=== PATIENT | male | born 1970 | race Caucasian/White ===

== ENCOUNTER → 2017-10-13 | Outpatient (CLI) | payer OTHER ==
[~2017-10-13] MED LIST: NXM/40 PO
--- NOTE | 2017-10-13 12:25 | DIAGNOSTIC IMAGING REPORT ---
L HAND MIN 3 VIEWS ROUTINE CLINICAL HISTORY: Left hand pain and swelling COMPARISON: None. DISCUSSION: No acute fractures or dislocations are visualized. There is a tiny wire like foreign body adjacent to the first metacarpal. There is a punctate foreign body located in the volar soft tissues adjacent to the proximal phalanx of the index finger. There is no erosive disease. IMPRESSION: 1. No acute fractures 2. Small foreign bodies as described above. Electronically signed by: Long Bourgeois M.D. 10/13/2017 12:24 PM Dictated Date/Time: 10/13/2017 12:21 PM
== END | disposition home or self-care (01) ==
LOC: C.RADBC 12:10
PROVIDERS: ATTEND Physician Assistant Medical
DX: M79.643 Pain in unspecified hand (principal); S60.451A Superficial foreign body of left index finger, initial encounter; X58.XXXA Exposure to other specified factors, initial encounter

== ENCOUNTER 2017-12-21 11:44 | Emergency (ER) | payer OTHER ==
[~2017-12-21] VITALS: Ht 177.8 cm; Wt 128.2 kg
[2017-12-21 11:47] VITALS: TEMP 36.9; Ht 177.8 cm; Wt 128.2 kg
[2017-12-21] MEDS ORDERED: PROPARACAINE HCL 0.5% OP SOLN 15 ML BTL OP STA (12:21)
[2017-12-21] MEDS ORDERED: ERYTHROMYCIN OP OINT 5 MG/GM 3.5 GM TUBE OP ONE (12:45)
[2017-12-21 13:01] VITALS: BP 140/80; PULSE 78; O2SAT 99
--- NOTE | 2017-12-21 18:36 | EMERGENCY ROOM VISIT NOTE ---
ED Visit Note First contact with patient: 12:02 CHIEF COMPLAINT: Foreign body in the right eye HISTORY OF PRESENT ILLNESS: This 47-year-old white male patient has a foreign body sensation in his eye and thinks it may be a piece of metal. He thinks the foreign object got in his eye when he was working underneath his jeep earlier today. He feels like it is in the lateral eye. His eye is irritated and has been tearing. His vision has not been adversely affected. The light bothers his eye. The pain is steady but is not increasing. No diplopia. His accompanies him today. He was not wearing safety glasses. REVIEW OF SYSTEMS: GENERAL: No fever or chills, easy fatigue, loss of appetite, or significant weight change. EYES AND EARS: No change in vision, photophobia, ear pain or change in hearing. PMH: Significant for GERD Previous surgeries: None. Family history: Noncontributory. Current medications: Nexium Allergies: Codeine SOCIAL HISTORY: Patient lives at home. . No tobacco use, positive EtOH use. PHYSICAL EXAM: Vital Signs: Afebrile. Reviewed and filed in patient's chart. Gen.: Well-developed, well-nourished, middle-aged white male, in obvious discomfort. No acute distress. Sitting on a bed. Alert and oriented Skin: Warm and dry with good turgor. No rashes or lesions. No ecchymosis or erythema. The patient is not diaphoretic. No abrasions. HEENT: Normocephalic atraumatic. Eyes PERRLA, EOMI. funduscopic exam is unremarkable today. Right sclera is injected. Eye was anesthetized using Alcaine drops and stained using fluorescein. Slit lamp exam was performed. There are no corneal abrasions present. No hyphema. No foreign material in the lower lid. Upper lid was everted using a Q-tip. A foreign body is visible under the lateral upper lid. This was removed easily with a Q-tip. DIAGNOSIS: Right eye retained foreign body in the upper lid DISCHARGE INSTRUCTIONS & TREATMENT: Patient was educated regarding today's findings. Conservative care measures were discussed. He states his tetanus is up-to-date. Given that it was a metallic foreign body but was not embedded in the cornea, he was given erythromycin ophthalmic ointment to be used one quarter inch in the lower lid 3 times a day for the next 4 days. The eye should return to normal by tomorrow. Return if any increasing redness in the eye or a persistent sensation of a foreign object in the eye, or any decrease in his vision. Tylenol and Motrin every 6 hours as needed for discomfort. He was instructed to use safety goggles when working under his vehicle. Current/Historical Medications Scheduled Esomeprazole Magnesium (Nexium), 40 MG PO BID Allergies Coded Allergies: Codeine (Unverified Allergy, Unknown, ., 12/21/17) Vital Signs Date Time Temp Pulse Resp B/P (MAP) Pulse Ox O2 Delivery O2 Flow Rate FiO2 12/21/17 13:01 78 20 140/80 99 12/21/17 11:47 36.9 76 18 176/82 97 Room Air Medications Administered Medications (Trade) Dose Ordered Sig/Devon Route Start Time Stop Time Status Last Admin Dose Admin Erythromycin (Erythromycin Oph Oint) 1 appln NOW ONCE OP 12/21/17 12:45 12/21/17 12:46 DC 12/21/17 12:57 1 APPLN Departure Information Impression Primary Impression: Foreign body of right eye Dispostion Home / Self-Care Forms WORK / SCHOOL INSTRUCTIONS, HOME CARE DOCUMENTATION FORM, MOTRIN USE, TYLENOL USE, IMPORTANT VISIT INFORMATION Patient Instructions [facility] Additional Instructions Erythromycin ophthalmic ointment 1/4 inch in the lower lid 3 times a day 4 days Tylenol and Motrin every 6 hours as needed for discomfort Sunglasses and dark rooms will improve your comfort Return to the ED or follow-up with your PCP for any acute worsening of symptoms
== END 2017-12-21 13:03 | disposition home or self-care (01) ==
LOC: C.EDB 11:47 → C.EDD 13:03
DX: S00.251A Superficial foreign body of right eyelid and periocular area, initial encounter (principal); X58.XXXA Exposure to other specified factors, initial encounter; K21.9 Gastro-esophageal reflux disease without esophagitis

== ENCOUNTER → 2018-03-23 | Outpatient (CLI) | payer OTHER ==
[2018-03-23 11:18] LABS: BASO % 0.3 %; BASO ABS # 0.02 K/uL (0-0.2); EOS % 3.2 %; EOS ABS # 0.19 K/uL (0-0.5); HEMATOCRIT 39.8 % (42-52); HEMOGLOBIN 12.7 g/dL (14.0-18.0); IG# 0.04 K/uL (0.00-0.02); LYMPH % 22.7 %; LYMPH ABS # 1.36 K/uL (1.2-3.4); MEAN CELL VOLUME 77.7 fL (80-100); MEAN CORPUSCULAR HEMOGLOBIN 24.8 pg (25-34); MEAN CORPUSCULAR HGB CONC 31.9 g/dl (32-36); MEAN PLATELET VOLUME 10.4 fL (7.4-10.4); MONO % 8.9 %; MONO ABS # 0.53 K/uL (0.11-0.59); NEUT % 64.2 %; NEUT ABS # 3.84 K/uL (1.4-6.5); PLATELET COUNT 314 K/uL (130-400); RED CELL DISTRIBUTION WIDTH SD 42.2 fL (36.4-46.3); WHITE BLOOD COUNT 5.98 K/uL (4.8-10.8)
[2018-03-23 11:32] LABS: ALBUMIN 3.4 gm/dl (3.4-5.0); ALT/SGPT 29 U/L (12-78); AST/SGOT 21 U/L (15-37); BLOOD UREA NITROGEN 14 mg/dl (7-18); CALCIUM 8.4 mg/dl (8.5-10.1); CARBON DIOXIDE 25 mmol/L (21-32); CREATININE 1.16 mg/dl (0.60-1.40); GLUCOSE 92 mg/dl (70-99); POTASSIUM 3.9 mmol/L (3.5-5.1); SODIUM 138 mmol/L (136-145)
[2018-03-23 11:35] LABS: ALKALINE PHOSPHATASE 79 U/L (45-117); TOTAL PROTEIN 7.2 gm/dl (6.4-8.2)
== END | disposition home or self-care (01) ==
LOC: C.LABBC 08:25
PROVIDERS: ATTEND Family Medicine Adult Medicine
DX: K62.5 Hemorrhage of anus and rectum (principal); I10 Essential (primary) hypertension

== ENCOUNTER → 2018-04-03 | Day surgery (SDC) | payer OTHER ==
[2018-03-31 16:01] VITALS: Ht 177.8 cm; Wt 122.7 kg
[~2018-04-03] VITALS: Ht 177.8 cm; Wt 122.7 kg
[~2018-04-03] MED LIST changes: +LIDOCAINE HCL 2% 2 ML VIAL (20MG/ML) ONE; +PROPOFOL IV EMULSION 10 MG/ML 20 ML VIAL ONE
--- NOTE | 2018-04-03 10:33 | Endo History and Physical ---
History & Physical Date of Service: April 03, 2018. Chief Complaint: Rectal bleeding Referring Physician: Dr. Gorman History of Present Illness 47 yo CF who presents for colonoscopy secondary to rectal bleeding. Past Surgical History Hx Cardiac Surgery: No Hx Internal Defibrillator: No Hx Pacemaker: No Hx Abdominal Surgery: No Hx of Implantable Prosthesis: No Hx Post-Op Nausea and Vomiting: No Hx Cancer Surgery: No Hx Thoracic Surgery: No Hx Orthopedic: No Hx Urinary Tract Surgery: No Social History Smoking Status: Never Smoker Hx Substance Use: No Hx Alcohol Use: Yes (A COUPLE BEERS A NIGHT) Allergies Coded Allergies: Codeine (Unverified Allergy, Unknown, ., 04/03/18) Current Medications Reported Home Medications Medications Dose Route/Sig Max Daily Dose Days Date Category Nexium (Esomeprazole Magnesium) 40 Mg Capcr 40 Mg PO BID 12/26/10 Reported Vital Signs Weight (Kilograms): 122.73 Height (Feet): 5 Height (Inches): 10 Date Time Temp Pulse Resp B/P (MAP) Pulse Ox O2 Delivery O2 Flow Rate FiO2 04/03/18 10:08 36.5 57 18 129/70 (89) 97 Room Air Physical Exam General Appearance: WD/WN, no apparent distress Respiratory/Chest: Auscultation: breath sounds normal Cardiovascular: Heart Auscultation: RRR Abdomen: Bowel Sounds: normal Inspection & Palpation: soft, non-distended, no tenderness, guarding & rebound Assessment and Plan Assessment: 47 yo CF who presents for colonoscopy secondary to rectal bleeding. Plan: Proceed with colonoscopy.
--- NOTE | 2018-04-03 10:59 | GI REPORT ---
Patient Name: Mega Vyas Procedure Date: 04/03/2018 10:24 AM Date of : 1970 Admit Type: Outpatient Age: 47 Gender: Male Attending MD: Brent Bolden DO Procedure: Colonoscopy Providers: Brnet Bolden DO Referring MD: Marilin Montoya MD Indications: Rectal bleeding Medicines: Monitored Anesthesia Care Complications: No immediate complications. Estimated Blood Loss: Estimated blood loss: none. Procedure: Pre-Anesthesia Assessment: - Prior to the procedure, a History and Physical was performed, and patient medications and allergies were reviewed. The patient's tolerance of previous anesthesia was also reviewed. The risks and benefits of the procedure and the sedation options and risks were discussed with the patient. All questions were answered, and informed consent was obtained. Prior Anticoagulants: The patient has taken no previous anticoagulant or antiplatelet agents. ASA Grade Assessment: II - A patient with mild systemic disease. After reviewing the risks and benefits, the patient was deemed in satisfactory condition to undergo the procedure. After I obtained informed consent, the scope was passed under direct vision. Throughout the procedure, the patient's blood pressure, pulse, and oxygen saturations were monitored continuously. The Scope was introduced through the anus and advanced to the terminal ileum. The colonoscopy was performed without difficulty. The patient tolerated the procedure well. The quality of the bowel preparation was good. The terminal ileum, ileocecal valve, appendiceal orifice, and rectum were photographed. Findings: The perianal and digital rectal examinations were normal. Multiple small-mouthed diverticula were found in the sigmoid colon. Non-bleeding internal hemorrhoids were found during retroflexion. The hemorrhoids were small. Impression: - Diverticulosis in the sigmoid colon. - Non-bleeding internal hemorrhoids. - No specimens collected. Recommendation: - Resume previous diet. - Continue present medications. - Repeat colonoscopy in 10 years for surveillance. - Return to primary care physician as previously scheduled. Brent Bolden DO 04/03/2018 10:58:45 AM This report has been signed electronically. Note Initiated On: 04/03/2018 10:24 AM Number of Addenda: 0 I attest to the content of the Intraoperative Record and orders documented therein, exceptions below {[id number]}
--- NOTE | 2018-04-03 10:59 | Discharge Instructions ---
Endoscopy Patient Instructions Date / Procedure(s) Performed April 03, 2018. Colonoscopy Allergy Information Coded Allergies: Codeine (Unverified Allergy, Unknown, ., 04/03/18) Discharge Date / Findings April 03, 2018. Diverticulosis Internal hemorrhoids Medication Instructions Stopped Medication(s): NEXIUM OK to resume all medications today as prescribed Reported Home Medications Medications Dose Route/Sig Max Daily Dose Days Date Category Nexium (Esomeprazole Magnesium) 40 Mg Capcr 40 Mg PO BID 12/26/10 Reported Provider Instructions Activity Restrictions - No exercising or heavy lifting for 24 hours. - Do not drink alcohol the day of the procedure. - Do not drive a car or operate machinery until the day after the procedure. - Do not make any important decisions or sign important papers in 24 hours after the procedure. Following Day: - Return to full activity which may include returning to work/school. Diet Start your diet with liquids and light foods (jello, soup, juice, toast). Then eat your usual diet if not nauseated. Treatment For Common After Affects For mild abdominal pain, bloating, or excessive gas: - Rest - Eat lightly - Lie on right side Follow-Up Information Follow-up with Dr. Gorman as scheduled Anesthesia Information What You Should Know You have had a procedure that required some medicine to reduce anxiety and discomfort. This treatment is called moderate sedation. After receiving the treatment, you may be sleepy, but you will be able to breathe on your own. The effects of the treatment may last for several hours. Follow these instructions along with Activity/Diet recommendations noted above: * Do NOT do anything where dizziness or clumsiness would be dangerous. * Rest quietly at home today, then you can be up and about tomorrow. * Have a responsible person stay with you the rest of today. * You may have had an I.V. today. If so, you may take the dressing off later today. Recommendations Call your doctor if: * Trouble breathing * Continuous vomiting for more than 24 hours * Temperature above 101 degrees * Severe abdominal pain or bloating * Pain not relieved by pain medicine ordered * There is increased drainage or redness from any incision * A large amount of rectal bleeding greater than 2-3 tablespoons. (If you had a polyp/s removed or have hemorrhoids, a small amount of blood - from the rectum is to be expected.) * You have any unanswered questions or concerns. IN THE EVENT OF A SERIOUS EMERGENCY, GO TO THE NEAREST EMERGENCY ROOM Your discharge instructions were prepared by provider Brent Bolden. Patient Instructions Signature Page Mega Vyas Patient (or Guardian) Signature/Date: I have read and understand the instructions given to me by my caregivers. Caregiver/RN/Doctor Signature/Date: The above-named patient and/or guardian has received patient instructions on this date. + Original Patient Signature Page (only) stays with chart. Please make copy for patient.
--- NOTE | 2018-04-03 11:12 | Anesthesiology Progress Note ---
Anesthesia Post Op Note Date & Time April 03, 2018 at 11:12 Vital Signs Pain Intensity: 0 Vital Signs Past 12 Hours Date Time Temp Pulse Resp B/P (MAP) Pulse Ox O2 Delivery O2 Flow Rate FiO2 04/03/18 10:58 54 18 137/82 (100) 96 Room Air 04/03/18 10:08 36.5 57 18 129/70 (89) 97 Room Air Notes Mental Status: alert / awake / arousable, participated in evaluation Pt Amnestic to Procedure: Yes Nausea / Vomiting: adequately controlled Pain: adequately controlled Airway Patency, RR, SpO2: stable & adequate BP & HR: stable & adequate Hydration State: stable & adequate Anesthetic Complications: no major complications apparent
[2018-04-03 11:20] VITALS: BP 123/77; PULSE 67; O2SAT 97
== END | disposition home or self-care (01) ==
LOC: C.GI 09:31
PROVIDERS: ATTEND Internal Medicine
DX: K62.5 Hemorrhage of anus and rectum (principal); K57.30 Diverticulosis of large intestine without perforation or abscess without bleeding; K64.8 Other hemorrhoids; Z88.5 Allergy status to narcotic agent

== ENCOUNTER 2022-04-12 16:16 | Inpatient (IN) ==
[2022-04-12 18:11] LABS: Hematocrit (blood only) 27.2 % (42-52); Hemoglobin 7.3 g/dL (14.0-18.0); Mean Corpuscular Hemoglobin 16.6 pg (25-34); Mean Corpuscular Hgb Conc 26.8 g/dL (32-36); Mean Corpuscular Volume 61.8 fL (80-100); Mean Platelet Volume 9.3 fL (7.4-10.4); Platelet Count 382 K/uL (130-400); RDW Coefficient of Variation 17.3 % (11.5-14.5); RDW Standard Deviation 38.9 fL (36.4-46.3); White Blood Count 6.27 K/uL (4.8-10.8)
[2022-04-12 18:15] LABS: Basophils # (auto) 0.01 K/uL (0-0.2); Basophils % (auto) 0.2 %; Eosinophils # (auto) 0.25 K/uL (0-0.5); Hypochromasia Present; Immature Granulocytes # (auto) 0.01 K/uL (0.00-0.02); Immature Granulocytes % (auto) 0.2 %; Lymphocytes # (auto) 1.72 K/uL (1.2-3.4); Lymphocytes % (auto) 27.4 %; Microcytosis Present; Monocytes # (auto) 0.44 K/uL (0.11-0.59); Neutrophils # (auto) 3.84 K/uL (1.4-6.5); Neutrophils % (auto) 61.2 %; Ovalocytes 1+; Tear Drop Cells 1+
[2022-04-12 18:16] LABS: Albumin Globulin Ratio 1.5 (0.9-2); Albumin Level 4.1 gm/dl (3.4-5.0); BUN Creatinine Ratio 15.3 (10-20); Bilirubin,Total 0.4 mg/dl (0.2-1.0); Calcium 8.8 mg/dl (8.5-10.1); Creatinine Clr Calc Pharmacy 127.8 ml/min; Est GFR (African American) 116.1 ml/min; Est GFR (Non-African American) 100.2 ml/min; Globulin 2.8 gm/dl (2.5-4.0); Potassium 3.8 mmol/L (3.5-5.1); Total Protein 6.9 gm/dl (6.0-8.3)
[2022-04-12 18:17] LABS: Partial Thromboplastin Ratio 0.7; Partial Thromboplastin Time 20.5 Seconds (21.0-31.0)
[2022-04-12] MEDS ORDERED: SODIUM CHLORIDE 0.9% 1000ML 1,000 ML IV STA (18:26)
--- NOTE | 2022-04-12 18:32 | Emergency Department Note ---
Impression & Plan Symptomatic anemia ED Provider Note INFORMANT: Patient ED PROVIDER(S): Avery Hart MD CHIEF COMPLAINT: Anemia PLAN: Disposition: Admitted Condition: Good Outpatient prescription management: none Referral: None MEDICAL DECISION MAKING: Patient presented because of abnormal hemoglobin noted on outpatient labs. On history it sounds like this is been a progressive issue as he has been having symptoms escalate over the last 7 months. Had blood work done as an outpatient and his anemia was confirmed on blood work in the ER. His hemoglobin was 7.3. Remainder of blood work was unremarkable. Further management will be necessary in the hospital. The patient has symptomatic anemia and I discussed transfusion. Patient consented. Patient was transfused 1 unit of packed red bl ood cells. [facility]ation [facility] with the [facility]. Patient was evaluated in the ER and admitted for further management. Triage Nursing notes reviewed and agree them. Vital Signs: reviewed and remarkable for no significant abnormalities Differential diagnosis: Esophagitis, peptic ulcer disease, variceal bleed, gastritis,Diverticulosis, AVM, coagulopathy, colitis, inflammatory bowel disease, malignancy, Vandana- Draper tear, epistaxis, fissure, hemorrhoids, as well as other pathologies. Diagnostics interpreted by me: EC Lead ECG performed and revealed Normal sinus rhythm at 66, normal [place], QRS normal. No elevation or depression. No PACs or PVCs Cardiac Monitoring: Cardiac monitoring ordered by me: The patient was placed on continuous cardiac monitoring and observed. It revealed a normal sinus rhythm at 62 beats per minute without ectopy or evidence of dysrhythmia. Imaging studies: Deferred HPI: The patient is a 51 year old male who presents to the Emergency Room with complaints of low hgb found today on outpatient labs. Hx of Reflux and notes persistent symptoms. Told in past that caused minor bleeding and anemia. Notes SOB with exertion since Oct 21, also intermittent chest pains. Hasn't seen a doctor in 3 years since his PCP retired. No relieving factors noted. Current pain is rated as 0/10. Pt denies LOC, headache, fevers, chills, diaphoresis, visual changes, neck pain, nausea, vomiting, abdominal pain, back pain, melena, hematochezia, urinary symptoms, numbness, weakness, lymphadenopathy, rash, or other complaints. ROS: See above HPI for pertinent positives & negatives. A total of 10 systems reviewed and were otherwise negative. PAST MEDICAL HISTORY:See Below , GERD, Anemia PAST SURGICAL HISTORY:See Below, FAMILY HISTORY:See Below SOCIAL HISTORY:See Below, non-smoker HOME MEDICATIONS:See Below ALLERGIES:See Below VITALS:See Below PHYSICAL EXAMINATION: GENERAL: Awake, alert, well-appearing, in no distress HENT: Normocephalic, atraumatic. Oropharynx unremarkable. EYES: Pale conjunctiva. Sclera non-icteric. NECK: Inspection normal. Non-tender. Supple. No nuchal rigidity. FROM. No masses. RESPIRATORY: Clear to auscultation. No wheezes. No rales. Normal respiratory effort. CARDIAC: Normal rate. Normal rhythm. No murmurs. No rubs. Extremities warm and well perfused. Pulses equal. No JVD. GI: Soft, non-distended. No tenderness to palpation. No rebound or guarding. No masses. RECTAL: Deferred. MUSCULOSKELETAL: Atraumatic. Chest examination reveals no tenderness. The back is symmetrical on inspection without obvious abnormality. There is no CVA tenderness to palpation. No joint edema. LOWER EXTREMITIES: Calves are equal size bilaterally and non-tender. No edema. N o discoloration. NEURO: Normal sensorium. No sensory or motor deficits noted. SKIN: No rash or jaundice noted. Avery Hart MD Past Med/Surg History Medical History (Updated 04/12/22 @ 21:23 by Reina Salvador PA-C) COVID-19 GERD (gastroesophageal reflux disease) No significant past medical history Obesity Symptomatic anemia Social History Smoking Status: Never smoker Second Hand Exposure: Yes; Do You Dip or Chew Tobacco: Yes; Tobacco Cessation Education Requested by Patient: No Hx Alcohol Use: No Hx Substance Use: No Preferred Language: Mohawk Communication Ability: Effective Phys Therapist Required: No Beliefs That Will Affect Care: None Current Living Situation: Spouse Other Information That Helps Us Care for You: No Feels Safe at Home: Yes Safety Concerns: Feels Safe At This Time Assistive Devices: None Allergies Allergies Allergy/AdvReac Type Severity Reaction Status Date / Time codeine Allergy Severe Anaphylaxis Unverified 04/12/22 19:34 Home Meds Home Medications Medication Instructions Recorded Confirmed esomeprazole magnesium 20 mg 0 mg PO DAILY PRN 04/12/22 04/12/22 tablet,delayed release Results & Data (ED) Vital Signs Vital Signs - 24 hr 04/12/22 16:31 Temperature 36.5 C Temperature Source Temporal Artery Scan Pulse Rate 81 Respiratory Rate 20 Blood Pressure 155/77 H Blood Pressure Mean 103 Pulse Oximetry 97 Oxygen Delivery Method Room Air Sepsis Recent Fever Within 48 Hours No Sepsis New/Unexplained Change in Mental Status N/A Sepsis Action Taken by Nursing No Action Required Laboratory Data Result diagrams: 04/12/22 17:40 04/12/22 17:40 Lab Results 04/12/22 04/12/22 04/12/22 Range/Units 17:38 17:40 17:40 WBC 6.27 (4.8-10.8) K/uL RBC 4.40 L (4.7-6.1) M/uL Hgb 7.3 L (14.0-18.0) g/dL Hct 27.2 L (42-52) % MCV 61.8 L (80-100) fL MCH 16.6 L (25-34) pg MCHC 26.8 L (32-36) g/dL RDW Std Deviation 38.9 (36.4-46.3) fL RDW Coeff of Vicenta 17.3 H (11.5-14.5) % Plt Count 382 (130-400) K/uL MPV 9.3 (7.4-10.4) fL Immature Gran % (Auto) 0.2 % Neut % (Auto) 61.2 % Lymph % (Auto) 27.4 % [place] % (Auto) 7.0 % Eos % (Auto) 4.0 % Baso % (Auto) 0.2 % Neut # (Auto) 3.84 (1.4-6.5) K/uL Lymph # (Auto) 1.72 (1.2-3.4) K/uL [place] # (Auto) 0.44 (0.11-0.59) K/uL Eos # (Auto) 0.25 (0-0.5) K/uL Baso # (Auto) 0.01 (0-0.2) K/uL Immature Gran # (Auto) 0.01 (0.00-0.02) K/uL Hypochromasia Present Microcytosis Present Tear Drop Cells 1+ Ovalocytes 1+ PT (9.0-12.0) Seconds INR (0.9-1.1) APTT (21.0-31.0) Seconds PTT Ratio Sodium 136 (136-145) mmol/L Potassium 3.8 (3.5-5.1) mmol/L Chloride 105 (98-107) mmol/L Carbon Dioxide 24 (21-32) mmol/L Anion Gap 7 (3-11) BUN 13 (6-23) mg/dl Creatinine 0.85 (0.6-1.4) mg/dl Est Cr Clr Drug Dosing 127.8 ml/min Est GFR ( Amer) 116.1 ml/min Est GFR (Non-Af Amer) 100.2 ml/min BUN/Creatinine Ratio 15.3 (10-20) Glucose 96 (70-99(Fasting)) mg/dl Calcium 8.8 (8.5-10.1) mg/dl Iron (35-175) mcg/dl TIBC (250-450) mcg/dl Unsaturated IBC (155-355) mcg/dl Transferrin % Sat (20-50) % Ferritin (8-388) ng/ml Total Bilirubin 0.4 (0.2-1.0) mg/dl AST 21 (13-39) U/L ALT 20 (7-52) U/L Alkaline Phosphatase 56 (34-104) U/L Troponin I High Sens (0-20) pg/ml Total Protein 6.9 (6.0-8.3) gm/dl Albumin 4.1 (3.4-5.0) gm/dl Globulin 2.8 (2.5-4.0) gm/dl Albumin/Globulin Ratio 1.5 (0.9-2) SARS-CoV-2, RNA, NAAT (NEGATIVE) Blood Type O Positive Blood Type Recheck Antibody Screen NEGATIVE Crossmatch See Detail 04/12/22 04/12/22 04/12/22 Range/Units 17:40 17:40 19:25 WBC (4.8-10.8) K/uL RBC (4.7-6.1) M/uL Hgb (14.0-18.0) g/dL Hct (42-52) % MCV (80-100) fL MCH (25-34) pg MCHC (32-36) g/dL RDW Std Deviation (36.4-46.3) fL RDW Coeff of Vicenta (11.5-14.5) % Plt Count (130-400) K/uL MPV (7.4-10.4) fL Immature Gran % (Auto) % Neut % (Auto) % Lymph % (Auto) % [place] % (Auto) % Eos % (Auto) % Baso % (Auto) % Neut # (Auto) (1.4-6.5) K/uL Lymph # (Auto) (1.2-3.4) K/uL [place] # (Auto) (0.11-0.59) K/uL Eos # (Auto) (0-0.5) K/uL Baso # (Auto) (0-0.2) K/uL Immature Gran # (Auto) (0.00-0.02) K/uL Hypochromasia Microcytosis Tear Drop Cells Ovalocytes PT 11.0 (9.0-12.0) Seconds INR 1.0 (0.9-1.1) APTT 20.5 L (21.0-31.0) Seconds PTT Ratio 0.7 Sodium (136-145) mmol/L Potassium (3.5-5.1) mmol/L Chloride (98-107) mmol/L Carbon Dioxide (21-32) mmol/L Anion Gap (3-11) BUN (6-23) mg/dl Creatinine (0.6-1.4) mg/dl Est Cr Clr Drug Dosing ml/min Est GFR ( Amer) ml/min Est GFR (Non-Af Amer) ml/min BUN/Creatinine Ratio (10-20) Glucose (70-99(Fasting)) mg/dl Calcium (8.5-10.1) mg/dl Iron (35-175) mcg/dl TIBC (250-450) mcg/dl Unsaturated IBC (155-355) mcg/dl Transferrin % Sat (20-50) % Ferritin (8-388) ng/ml Total Bilirubin (0.2-1.0) mg/dl AST (13-39) U/L ALT (7-52) U/L Alkaline Phosphatase (34-104) U/L Troponin I High Sens 5.9 (0-20) pg/ml Total Protein (6.0-8.3) gm/dl Albumin (3.4-5.0) gm/dl Globulin (2.5-4.0) gm/dl Albumin/Globulin Ratio (0.9-2) SARS-CoV-2, RNA, NAAT (NEGATIVE) Blood Type Blood Type Recheck O Positive Antibody Screen Crossmatch 04/12/22 04/12/22 Range/Units 19:25 19:32 WBC (4.8-10.8) K/uL RBC (4.7-6.1) M/uL Hgb (14.0-18.0) g/dL Hct (42-52) % MCV (80-100) fL MCH (25-34) pg MCHC (32-36) g/dL RDW Std Deviation (36.4-46.3) fL RDW Coeff of Vicenta (11.5-14.5) % Plt Count (130-400) K/uL MPV (7.4-10.4) fL Immature Gran % (Auto) % Neut % (Auto) % Lymph % (Auto) % [place] % (Auto) % Eos % (Auto) % Baso % (Auto) % Neut # (Auto) (1.4-6.5) K/uL Lymph # (Auto) (1.2-3.4) K/uL [place] # (Auto) (0.11-0.59) K/uL Eos # (Auto) (0-0.5) K/uL Baso # (Auto) (0-0.2) K/uL Immature Gran # (Auto) (0.00-0.02) K/uL Hypochromasia Microcytosis Tear Drop Cells Ovalocytes PT (9.0-12.0) Seconds INR (0.9-1.1) APTT (21.0-31.0) Seconds PTT Ratio Sodium (136-145) mmol/L Potassium (3.5-5.1) mmol/L Chloride (98-107) mmol/L Carbon Dioxide (21-32) mmol/L Anion Gap (3-11) BUN (6-23) mg/dl Creatinine (0.6-1.4) mg/dl Est Cr Clr Drug Dosing ml/min Est GFR ( Amer) ml/min Est GFR (Non-Af Amer) ml/min BUN/Creatinine Ratio (10-20) Glucose (70-99(Fasting)) mg/dl Calcium (8.5-10.1) mg/dl Iron 22 L (35-175) mcg/dl TIBC 420 (250-450) mcg/dl Unsaturated IBC 398 H (155-355) mcg/dl Transferrin % Sat 5 L (20-50) % Ferritin 2.1 L (8-388) ng/ml Total Bilirubin (0.2-1.0) mg/dl AST (13-39) U/L ALT (7-52) U/L Alkaline Phosphatase (34-104) U/L Troponin I High Sens 6.1 (0-20) pg/ml Total Protein (6.0-8.3) gm/dl Albumin (3.4-5.0) gm/dl Globulin (2.5-4.0) gm/dl Albumin/Globulin Ratio (0.9-2) SARS-CoV-2, RNA, NAAT NEGATIVE (NEGATIVE) Blood Type Blood Type Recheck Antibody Screen Crossmatch Administered Medications Sodium Chloride (Nss 1000ml) 1,000 mls @ 125 mls/hr IV .Q8H STA Stop: 04/13/22 02:25 Last Admin: 04/12/22 19:15 Dose: 125 mls/hr Documented by: [id number] Pantoprazole Sodium 40 mg/ (Syringe) 10 mls @ 5 mls/min IV BID ENRIQUE Stop: 05/12/22 20:59 Last Admin: 04/12/22 22:20 Dose: 5 mls/min Documented by: [id number] Discontinued Medications Ioversol (Optiray 320 100ml) 94 ml IV ONCE ONE Stop: 04/12/22 23:00 Last Admin: 04/12/22 22:59 Dose: 94 ml Documented by: [id number] Imaging Data Radiologist's Impression: Chest X-Ray 04/12/22 19:43 XR chest 1V portable HISTORY: shortness of breath COMPARISON: Chest 12/26/2010. FINDINGS: The lungs are clear. Cardiac silhouette is borderline enlarged. No pleural effusions. No pneumothorax. IMPRESSION: Borderline cardiomegaly. Otherwise, no acute process within the chest ACT 112: Negative or not required by law. Electronically signed by: Raul Valle M.D. 04/12/2022 8:02 PM Discharge Plan Visit Data Chief Complaint: Abnormal Labs/Diagnostic Testing Stated Complaint: ABNORMAL LABS, REF FOR TRANSFUSION ED Provider: Avery Hart Discharge Problem: Symptomatic anemia Patient Disposition: Admitted As Inpatient Discharge Instructions Interventions: ED Discharge Assessment Last Done: 04/12/22 20:57
[2022-04-12] MEDS ORDERED: SODIUM CHLORIDE 0.9% 250 ML IV PRN ×2 (18:35→21:15)
--- NOTE | 2022-04-12 19:10 | History & Physical Report ---
Date of Service April 12, 2022 Assessment & Plan (1) Symptomatic anemia: Plan: - Hgb 7.4 on outpatient labs, 7.3 here. Microcytic. Associated fatigue, SOB, intermittent chest pain since October. - Peripheral smear, iron panel ordered, done prior to transfusion: -Iron 22, TIBC 420, unsaturated IBC 398, transferrin percent 5%, ferritin 2.1. - CT A/P, CXR ordered. - 2 units RBCs ordered for floor with 2 on hold. - Started on IV protonix 40 mg BID, NPO at midnight. - GI consulted. (2) Shortness of breath: Plan: - Chronic over several months, most likely related to anemia. CXR unrevealing other than borderline cardiomegaly. - SpO2 > 95% on room air. (3) GERD (gastroesophageal reflux disease): Plan: - Nexium at home, will be on IV PPI here. Plan: - Admit to PCU. - SCDs, no chemoppx due to suspected GI bleed. - Full Code. History of Present Illness Chief Complaint: anemia on outpt labs Primary Care Provider: Aquiles Gorman MD Mr. Vyas is a 51-year-old male past medical history of obesity and GERD who presents today for hemoglobin of 7.3 on outpatient labs. He presented to his PCP today to be seen for ongoing SOB, fatigue and chest pain. He noticed in October 2021 when he had to cut wood he was very short of breath and fatigued, feeling wiped out with significantly less activity than is typically able to do. This has been ongoing with activity since then. Associated with intermittent bouts of chest pain, described as sharp, stabbing pain in his chest that does not radiate elsewhere, lasts up to 30 seconds and goes away without intervention. Comes on both at rest, with activity, and after meals. Reports sometimes after swallowing, he feels pressure as if the food is pushing on his heart as it goes down. He denies fever/chills, weight loss, night sweats, decreased appetite, chest pressure, diaphoresis, dizziness, syncope, cough, orthopnea, PND, abdominal pain, nausea, vomiting, melena, hematochezia, hematemesis. Was evaluated by his PCP today who ordered labs for further evaluation. Labs and stress echo ordered, An EKG was done in the office that did not reveal any clear signs of ischemia. He reports having EGDs in the past at this facility years ago and been being told he has "a bleeding throat", did find a EGD report from 2009 that reported gastritis/esophagitis. He takes Nexium for heartburn. Reports a poor diet consists of fatty foods and fast food, denies alcohol use. Denies personal or family history of anemia, GI cancers. In ED, patient hypertensive 155/77, otherwise vital signs normal stable, 97% on room air. Labs significant for Hgb 7.3 with MCV 61.8, MCHC 26.8. Coag panel within normal limits. CMP unremarkable. Allergies Allergy/AdvReac Type Severity Reaction Status Date / Time codeine Allergy Severe Anaphylaxis Unverified 04/12/22 19:34 Home Medications Medication Instructions Recorded Confirmed Type esomeprazole magnesium 20 mg 0 mg PO DAILY PRN 04/12/22 04/12/22 History tablet,delayed release Past Med/Surg History Medical History (Updated 04/13/22 @ 21:52 by Marcos Lopez) COVID-19 GERD (gastroesophageal reflux disease) No significant past medical history Symptomatic anemia Social History Smoking Status: Never smoker Second Hand Exposure: Yes; Do You Dip or Chew Tobacco: Yes; Tobacco Cessation Education Requested by Patient: No Hx Alcohol Use: No Hx Substance Use: No Preferred Language: Faroese Communication Ability: Effective Bearing Ring Assembler Required: No Beliefs That Will Affect Care: None Current Living Situation: Spouse Other Information That Helps Us Care for You: No Feels Safe at Home: Yes Safety Concerns: Feels Safe At This Time Assistive Devices: None Review of Systems Review of Systems: Constitutional: fatigue since October 2021; No fever/chills, weakness, myalgias, anorexia, night sweats Eyes: No diplopia, no worsening or blurred vision ENT: normal hearing, no trouble swallowing Respiratory: No cough, sputum, dyspnea at rest or on exertion Cardiovascular: No chest pain, tightness or palpitations Abdomen: No pain, nausea, vomiting, diarrhea or constipation : Denies dysuria, hematuria, increased urgency/frequency, urinary retention Musculoskeletal: No joint pain, calf pain, swelling Neurologic: No weakness, numbness/tingling, or balance problems Psychiatric: No anxiety or depression Skin: No rash or itch Physical Exam Physical Exam: General: awake, alert, no apparent distress Head: Normocephalic, atraumatic ENT: PERRL, EOMI, no pharyngeal exudate, mucous membranes moist Chest: Clear to auscultation, on room air, no adventitious breath sounds Cardiac: Regular rate and rhythm, no murmur, no JVD, normal peripheral pulses, good capillary refill Abdominal: NABS x 4 quadrants, soft, nontender to palpation, no rebound, guarding or tenderness Extremities: Normal inspection, no peripheral edema or erythema, calfs nontender to palpation Psych: Normal mood and affect Neuro: AAO x 3, strength intact bilaterally and rated 5/5, no motor deficits, speech is clear, no peripheral sensory deficits Skin: no rash or erythema Results & Data Results & Data ([facility]) Vital Signs (Past 12 Hours) Vital Signs Temp Pulse Resp BP Pulse Ox 04/12/22 16:31 36.5 C 81 20 155/77 H 97 Laboratory Results Abnormal lab results 04/12/22 04/12/22 Range/Units 17:40 17:40 RBC 4.40 L (4.7-6.1) M/uL Hgb 7.3 L (14.0-18.0) g/dL Hct 27.2 L (42-52) % MCV 61.8 L (80-100) fL MCH 16.6 L (25-34) pg MCHC 26.8 L (32-36) g/dL RDW Coeff of Vicenta 17.3 H (11.5-14.5) % APTT 20.5 L (21.0-31.0) Seconds Diagnostic Findings Chest X-Ray 04/12/22 19:43 XR chest 1V portable HISTORY: shortness of breath COMPARISON: Chest 12/26/2010. FINDINGS: The lungs are clear. Cardiac silhouette is borderline enlarged. No pleural effusions. No pneumothorax. IMPRESSION: Borderline cardiomegaly. Otherwise, no acute process within the chest ACT 112: Negative or not required by law. Electronically signed by: Raul Valle M.D. 04/12/2022 8:02 PM ECG Additional Comments: Normal sinus rhythm Normal ECG No previous ECGs available. Code Status & VTE Plan Code Status Full Code. Supervising Physician Co-Signing Physician Notes Attending addendum: I have physically seen this patient, have supervised the [facility]'s activities, and agree with the H&P unless as otherwise noted. Assessment and Plan: Symptomatic anemia- Hemoglobin 7.4 with outpatient labs, and 7.3 while in the ED tonight Severe hypochromic microcytic anemia Check iron studies, B12, folate, reticulocyte count, Hemoccults, and peripheral smear 2 units PRBCs ordered by the ED Stop x40 mg IV twice daily N.p.o. H&H every 6 hours Hemoccult test stools Consult gastroenterology GERD/GI bleed- Oral Nexium changed to IV Protonix while in hospital Remaining orders and notations as noted PG Care Time/CCT Total # of Minutes Spent Total Time Spent with Patient: Total time spent is greater than 50% in coordination of care (as documented) at patient's floor/unit and/or counseling patient: Coding Level of Care Code 34932 Initial Inpt Care Lvl 2 Diagnoses Symptomatic anemia D64.9 Shortness of breath R06.02 GERD (gastroesophageal reflux disease) K21.9
--- NOTE | 2022-04-12 20:05 | XRay Report ---
XR chest 1V portable HISTORY: shortness of breath COMPARISON: Chest 12/26/2010. FINDINGS: The lungs are clear. Cardiac silhouette is borderline enlarged. No pleural effusions. No pn eumothorax. IMPRESSION: Borderline cardiomegaly. Otherwise, no acute process within the chest ACT 112: Negative or not required by law. Electronically signed by: Raul Valle M.D. 04/12/2022 8:02 PM
[2022-04-12 20:31] LABS: Troponin I High Sensitivity 6.1 pg/ml (0-20)
[2022-04-12 20:34] LABS: Ferritin 2.1 ng/ml (8-388)
[2022-04-12] MEDS ORDERED: POLYETHYLENE (MIRALAX) 17 GM PACK PO PRN (21:15)
[2022-04-12] MEDS ORDERED: ONDANSETRON INJ 2 MG/ML 2 ML VIAL IV PRN (21:15)
[2022-04-12] MEDS: PANTOprazole 40 MG in SYRINGE 0 ML IV SCH (22:20)
[2022-04-12] MEDS ORDERED: OPTIRAY 320 100ml IV ONE (22:59)
[2022-04-13 07:59] LABS: BUN Creatinine Ratio 11.5 (10-20); Calcium 8.5 mg/dl (8.5-10.1); Creatinine Clr Calc Pharmacy 127.4 ml/min; Est GFR (African American) 114.2 ml/min; Est GFR (Non-African American) 98.5 ml/min; Potassium 4.3 mmol/L (3.5-5.1)
[2022-04-13 08:19] LABS: Hematocrit (blood only) 28.2 % (42-52); Hemoglobin 7.8 g/dL (14.0-18.0); Mean Corpuscular Hgb Conc 27.7 g/dL (32-36); Mean Platelet Volume 9.3 fL (7.4-10.4); Platelet Count 369 K/uL (130-400); RDW Coefficient of Variation 19.4 % (11.5-14.5); Red Blood Count 4.34 M/uL (4.7-6.1); White Blood Count 4.43 K/uL (4.8-10.8)
[2022-04-13 08:30] LABS: Basophils # (auto) 0.01 K/uL (0-0.2); Basophils % (auto) 0.2 %; Eosinophils # (auto) 0.27 K/uL (0-0.5); Eosinophils % (auto) 6.1 %; Giant Platelets 1+; Hypochromasia Present; Lymphocytes # (auto) 1.19 K/uL (1.2-3.4); Lymphocytes % (auto) 26.9 %; Microcytosis Present; Monocytes % (auto) 11.3 %; Neutrophils # (auto) 2.46 K/uL (1.4-6.5); Neutrophils % (auto) 55.5 %; Poikilocytosis Present
--- NOTE | 2022-04-13 09:35 | CT Scan Report ---
CT abd pelvis oral and IV con CLINICAL HISTORY: suspected lower GI bleed TECHNIQUE: Helical axial images of the abdomen and pelvis were obtained and displayed. Automated dose lowering techniques and/or adjustment according to patient size were utilized for this exam. This e xam was performed with intravenous contrast. CT DOSE: 1404.61 mGy.cm COMPARISON: Comparison is made to CT abdomen pelvis 04/12/2022 FINDINGS: Lower chest: No acute abnormality Liver: Unremarkable. No focal lesions are seen. Gallbladder and biliary tree: No calcified gallstones. Normal caliber wall. No intra- or extrahepatic biliary ductal dilation. Pancreas: Unremarkable, no focal lesions. Spleen: Unremarkable. Adrenals: Unremarkable. Kidneys and ureters: A left renal cyst is noted. Bladder: Unremarkable. Reproductive organs: Unremarkable. Bowel: A few diverticuli are seen without evidence of diverticulitis. The appendix is normal. A small hiatal hernia is seen. Lymph nodes Retroperitoneal: Unremarkable. Mesenteric: Unremarkable. Pelvic: Unremarkable. Peritoneum: Normal. Vessels: Unremarkable. Abdominal wall: Unremarkable. Bones: Unremarkable. IMPRESSION: No acute abnormalities. No definite foci of GI bleed. ACT 112: Negative or not required by law. Electronically signed by: Les Hernandez M.D. 04/13/2022 9:34 AM
[2022-04-13] MEDS ORDERED: SODIUM CHLORIDE 0.9% 250 ML IV PRN (09:50)
[2022-04-13] MEDS: PANTOprazole 40 MG in SYRINGE 0 ML IV SCH ×2 (10:04→19:46)
--- NOTE | 2022-04-13 10:09 | Electrocardiogram Report ---
Test Reason : Blood Pressure : / mmHG Vent. Rate : 066 BPM Atrial Rate : 066 BPM P-R Int : 168 ms QRS Dur : 086 ms QT Int : 406 ms P-R-T Axes : 037 009 054 degrees QTc Int : 425 ms Normal sinus rhythm Normal ECG No previous ECGs available Confirmed by Berry Garcia ([id number]) on 04/13/2022 10:09:20 AM Referred By: REFERRED SELF Confirmed By:Berry Garcia
--- NOTE | 2022-04-13 13:27 | Gastrointestinal Consultation ---
Date of Consultation April 13, 2022 Assessment & Plan (1) Symptomatic anemia: suspect slow bleeding AVM vs. PUD or less likely malignancy. no family hx anemia. recs: NPO post midnight EGD tomorrow to further evaluate supportive care, IVFs, transfuse pRBC prn protonix 40 mg BID Thank you for allowing me to participate in the care of this patient. History of Present Illness Attending Physician: Marcos Lopez History of Present Illness 51-year-old male with hx obesity, GERD here with symptomatic anemia. Notes since 10/2021 has had fatigue with exertion, particularly cutting wood. also with dyspnea and chest pains. No hematemesis, hematochezia, NSAID use, alcohol abuse. Hgb noted to be 7.8, was 12.7 in 03/2018. Notes prior EGD with Dr. Bee and reports having bleeding from his throat. Also with past colonoscopy around the same time, so at least 5 years ago. labs reviewed. Allergies Allergy/AdvReac Type Severity Reaction Status Date / Time codeine Allergy Severe Anaphylaxis Unverified 04/12/22 19:34 Home Medications Medication Instructions Recorded Confirmed Type esomeprazole magnesium 20 mg 0 mg PO DAILY PRN 04/12/22 04/12/22 History tablet,delayed release Patient History Medical History (Updated 04/12/22 @ 21:23 by Reina aSlvador PA-C) COVID-19 GERD (gastroesophageal reflux disease) No significant past medical history Obesity Symptomatic anemia Social History Smoking Status: Never smoker Second Hand Exposure: Yes; Do You Dip or Chew Tobacco: Yes; Tobacco Cessation Education Requested by Patient: No Hx Alcohol Use: No Hx Substance Use: No Preferred Language: Yi Communication Ability: Effective Ethnoarchaeologist Required: No Beliefs That Will Affect Care: None Current Living Situation: Spouse Other Information That Helps Us Care for You: No Feels Safe at Home: Yes Safety Concerns: Feels Safe At This Time Assistive Devices: None Review of Systems Constitutional: no fever, no chills and no weight loss Eyes: as per Subjective / HPI Ear, Nose, Mouth, Throat: as per Subjective / HPI Respiratory: no dyspnea and no dyspnea on exertion Cardiovascular: no chest pain and no palpitations Gastrointestinal: as per Subjective / HPI Musculoskeletal: no joint pain and no swelling Integumentary: no rash and no lesions Neurologic: no numbness and no paresthesia Psychiatric: no depression and no anxiety Endocrine: no fatigue Hematologic / Lymphatic: no easy bleeding and no easy bruising Physical Exam Constitutional: WD/WN, vitals as above Eyes: EOM intact bilaterally Neck: normal visual inspection Respiratory: normal respiratory effort, lungs clear to auscultation Cardiovascular: RRR, no murmur, no edema Gastrointestinal (Abdomen): Inspection/Auscultation: abdomen normal to inspection; abdomen not distended Percussion/Palpation: abdomen soft; abdomen nontender and no hepatosplenomegaly Musculoskeletal: Extremities: no cyanosis Gait: normal gait Skin: no rashes, warm and dry Neurologic: moves all extremities Psychiatric: A+Ox3, euthymic affect Results & Data ([facility]) Vital Signs (Past 12 Hours) Vital Signs Temp Pulse Pulse Resp BP BP Pulse Ox 04/13/22 12:42 36.6 C 48 L 18 132/78 99 04/13/22 11:43 36.3 C L 49 L 16 127/75 97 04/13/22 11:42 36.6 C 52 L 16 132/75 04/13/22 11:13 36.8 C 48 L 18 123/72 95 04/13/22 10:58 36.8 C 53 L 16 130/84 97 04/13/22 10:43 36.6 C 52 L 16 132/75 98 04/13/22 10:34 36.7 C 52 L 16 132/75 99 04/13/22 08:12 36.7 C 54 L 18 143/85 H 96 04/13/22 07:50 53 L 04/13/22 07:47 04/13/22 03:00 36.7 C 62 18 126/74 98 04/13/22 02:30 36.7 C 70 18 118/66 97 04/13/22 01:30 36.7 C 62 18 129/63 97 Pulse Ox 04/13/22 12:42 04/13/22 11:43 04/13/22 11:42 04/13/22 11:13 04/13/22 10:58 04/13/22 10:43 04/13/22 10:34 04/13/22 08:12 04/13/22 07:50 04/13/22 07:47 98 04/13/22 03:00 04/13/22 02:30 04/13/22 01:30 PG Care Time/CCT Total # of Minutes Spent Total Time Spent with Patient: Total time spent is greater than 50% in coordination of care (as documented) at patient's floor/unit and/or counseling patient: Coding Level of Care Code 99559 Inpt Consult Level 4 Diagnoses Symptomatic anemia D64.9
[2022-04-13] MEDS: IRON SUCROSE 300 MG in SODIUM CHLORIDE 0.9% 250 ML IV SCH (14:35)
--- NOTE | 2022-04-13 21:44 | Hospitalist Progress Note ---
Date of Service April 13, 2022 Assessment & Plan (1) Symptomatic anemia: Plan: Hb 7.3 upon presentation. s/p 1 unit PRBCs overnight - Hb 7.8 this am. will Tx 1 additional unit PRBCs. venofer x 3 doses while hosptalized. CBC in am. appreciate Dr Long's consult - NPO after MN tonight for EGD in am. symptoms, Fe def, etc all concerning for significant upper GI pathology. (2) Iron deficiency anemia: Plan: severe ferritin 2 venofer 300mg IV daily x 3 daily doses check b12/folate in am for completeness sake (3) Shortness of breath: Plan: chronic likely due to #1 however, if symptoms persist after correcting his anemia would need cardiac (ischemic) w/u as outpatient (4) GERD (gastroesophageal reflux disease): Plan: cont IV PPI twice daily severe GERD symptoms on daily basis at home despite once daily PPI h/o esophagitis from such EGD tomorrow as planned by Dr Long (5) Morbid obesity with BMI of 40.0-44.9, adult: Plan: BMI 40 (6) Prediabetes: Plan: Hba1c 6% will personal financial counselor patient (7) History of esophagitis: Plan: 2009 and 2010 - EGDs by Dr Bee with SEVERE reflux esophagitis 2009 esophageal bx - no Gray's Plan: updated at bedside Admission and Anticipated Discharge Date Admission Date: April 12, 2022 Subjective patient without complaints sitting in chair by the window, resting comfortably reports daily heartburn symptoms even despite taking PPI once daily denies melena or BRBPR denies abd pain tolerated 2 units PRBCs tele overnight wnl Review of Systems Review of Systems: gen - denies weight loss, good appetite cv - no chest pain pulm - no cough GI - no abd pain or nausea/emesis Physical Exam Physical Exam: gen - NAD skin - no pallor heart - RRR, s1 s2, no murmur lungs - CTA b/l abd - soft NT ND BS+ ext - no edema, pulses 2+ b/l psych - a/o x 3 Results & Data Results & Data ([facility]) Vital Signs (Past 12 Hours) Vital Signs Temp Pulse Pulse Pulse Resp BP BP 04/13/22 19:32 36.7 C 59 L 18 04/13/22 15:34 36.5 C 56 L 20 127/68 04/13/22 12:42 36.6 C 48 L 18 132/78 04/13/22 11:43 36.3 C L 49 L 16 127/75 04/13/22 11:42 36.6 C 52 L 16 132/75 04/13/22 11:13 36.8 C 48 L 18 123/72 04/13/22 10:58 36.8 C 53 L 16 130/84 04/13/22 10:43 36.6 C 52 L 16 132/75 04/13/22 10:34 36.7 C 52 L 16 132/75 BP Pulse Ox 04/13/22 19:32 133/65 96 04/13/22 15:34 96 04/13/22 12:42 99 04/13/22 11:43 97 04/13/22 11:42 04/13/22 11:13 95 04/13/22 10:58 97 04/13/22 10:43 98 04/13/22 10:34 99 Laboratory Results Laboratory Results - last 24 hr 04/12/22 04/13/22 04/13/22 17:38 07:03 07:03 WBC 4.43 L RBC 4.34 L Hgb 7.8 L Hct 28.2 L MCV 65.0 L D MCH 18.0 L MCHC 27.7 L RDW Std Deviation 45.0 RDW Coeff of Vicenta 19.4 H Plt Count 369 MPV 9.3 Immature Gran % (Auto) 0.0 Neut % (Auto) 55.5 Lymph % (Auto) 26.9 [place] % (Auto) 11.3 Eos % (Auto) 6.1 Baso % (Auto) 0.2 Neut # (Auto) 2.46 Lymph # (Auto) 1.19 L [place] # (Auto) 0.50 Eos # (Auto) 0.27 Baso # (Auto) 0.01 Immature Gran # (Auto) 0.00 Giant Platelets 1+ Hypochromasia Present Poikilocytosis Present Microcytosis Present Sodium 137 Potassium 4.3 Chloride 107 Carbon Dioxide 24 Anion Gap 6 BUN 10 Creatinine 0.87 Est Cr Clr Drug Dosing 127.4 Est GFR ( Amer) 114.2 Est GFR (Non-Af Amer) 98.5 BUN/Creatinine Ratio 11.5 Glucose 101 H Calcium 8.5 Blood Type O Positive Antibody Screen NEGATIVE Crossmatch See Detail PG Care Time/CCT Total # of Minutes Spent Total Time Spent with Patient: Total time spent is greater than 50% in coordination of care (as documented) at patient's floor/unit and/or counseling patient: Coding Level of Care Code 29955 Subseq Hosp Care Lvl 3 Diagnoses Symptomatic anemia D64.9 Shortness of breath R06.02 GERD (gastroesophageal reflux disease) K21.9 Iron deficiency anemia D50.9 Morbid obesity with BMI of 40.0-44.9, adult E66.01; Z68.41 Prediabetes R73.03 History of esophagitis Z87.19
--- NOTE | 2022-04-13 22:02 | Billing Data ---
Date of Service April 13, 2022 Coding Level of Care Code 89858 Initial Inpt Care Lvl 3
[2022-04-14 06:57] LABS: Hematocrit (blood only) 31.2 % (42-52); Hemoglobin 8.8 g/dL (14.0-18.0); Mean Corpuscular Hemoglobin 18.5 pg (25-34); Mean Corpuscular Hgb Conc 28.2 g/dL (32-36); Mean Corpuscular Volume 65.7 fL (80-100); Mean Platelet Volume 9.7 fL (7.4-10.4); Platelet Count 382 K/uL (130-400); RDW Coefficient of Variation 19.7 % (11.5-14.5); RDW Standard Deviation 46.6 fL (36.4-46.3); Red Blood Count 4.75 M/uL (4.7-6.1); White Blood Count 4.77 K/uL (4.8-10.8)
--- NOTE | 2022-04-14 06:59 | Anesthesiology Consultation ---
Date of Service April 14, 2022 Assessment & Plan Chart Review Chart Review: Acceptable Risk for Surgery and Patient NOT seen in Pre Admission Testing Consults Requested none ASA ASA3 Proposed Anesthesia Anesthesia Type: General History Surgery Operation Date: 04/14/22 09:00 Proposed Procedures p Esophagogastroduodenoscopy - Sebastian Long MD Height/Weight Height: 5 ft 9 in Weight: 122.7 kg Allergies Allergy/AdvReac Type Severity Reaction Status Date / Time codeine Allergy Severe Anaphylaxis Unverified 04/12/22 19:34 Medications Home Medications Medication Instructions Recorded Confirmed Last Taken esomeprazole magnesium 20 mg 0 mg PO DAILY PRN 04/12/22 04/12/22 Unknown tablet,delayed release Active Medications Generic Name Dose Route Start Last Admin Trade Name Freq PRN Reason Stop Dose Admin Pantoprazole Sodium 40 mg/ 10 mls @ 5 mls/min 04/12/22 21:00 04/13/22 19:46 Syringe IV 05/12/22 20:59 5 mls/min BID ENRIQUE Administration Iron Sucrose 300 mg/ Sodium 265 mls @ 176.667 mls/hr 04/13/22 14:30 04/13/22 16:05 Chloride IV 04/16/22 14:29 Infused DAILY ENRIQUE Infusion Past Medical History Medical History COVID-19 GERD (gastroesophageal reflux disease) No significant past medical history Symptomatic anemia morbid obesity; chews tobacco Exercise / Class Metabolic Activity II 4-5 Yardwork/Stairs/Walk up hill Past Anesthesia History No Hx of Anesthesia Complications and No Family Hx of Anesthesia Complications History of PONV No Hx of PONV and No Hx of Motion Sickness Social History Smoking Status: Never smoker Do You Dip or Chew Tobacco: Yes Hx Alcohol Use: No Hx Substance Use: No Physical Exam Vital Signs Last Vital Signs Temp 36.4 C L 04/14/22 03:50 Pulse 50 L 04/14/22 03:50 Resp 18 04/14/22 03:50 BP 166/97 H 04/14/22 03:50 Pulse Ox 95 04/14/22 03:50 Testing Laboratory Results PT 11.0 Seconds (9.0-12.0) 04/12/22 17:40 INR 1.0 (0.9-1.1) 04/12/22 17:40 APTT 20.5 Seconds (21.0-31.0) L 04/12/22 17:40 Blood Type O Positive 04/12/22 17:38 Antibody Screen NEGATIVE 04/12/22 17:38 Electrocardiogram Date: 04/12/22 Findings: + NSR @ (at 66) Chest X-Ray Date: 04/12/22 Findings: + NAD and + cardiomegaly
[2022-04-14 07:18] LABS: BUN Creatinine Ratio 11.8 (10-20); Calcium 8.5 mg/dl (8.5-10.1); Creatinine Clr Calc Pharmacy 130.1 ml/min; Est GFR (African American) 115.3 ml/min; Est GFR (Non-African American) 99.5 ml/min; Potassium 4.1 mmol/L (3.5-5.1)
[2022-04-14] MEDS: IRON SUCROSE 300 MG in SODIUM CHLORIDE 0.9% 250 ML IV SCH (07:38)
[2022-04-14] MEDS: PANTOprazole 40 MG in SYRINGE 0 ML IV SCH (07:39)
[2022-04-14 07:40] LABS: Folate (Folic Acid) > 22.30 ng/ml (>5.38)
[2022-04-14 07:41] LABS: Vitamin B12 336 pg/ml (180-914)
--- NOTE | 2022-04-14 07:58 | History & Physical Bridge Note ---
Date of Service April 14, 2022 History & Physical Bridge Note I have examined the patient, reviewed the History & Physical and in the interval since the performance of the History & Physical I have noted the following changes of clinical significance: no changes noted Proceed with EGD. risks/benefits and procedure discussed with patient, who agrees to proceed
[2022-04-14] MEDS ORDERED: MIDAZOLAM HCL 1 MG/ML 2ML VIAL ONE (08:24)
[2022-04-14] MEDS ORDERED: PROPOFOL IV EMULSION 10 MG/ML 20 ML VIAL IV ONE (08:24)
[2022-04-14] MEDS ORDERED: fentaNYL citrate 100 MCG/2 ML VIAL ONE (08:24)
[2022-04-14] MEDS ORDERED: SUCCINYLCHOLINE CHLORIDE 20 MG/ML 10 ML VIAL IV ONE (08:25)
[2022-04-14] MEDS ORDERED: ATROPINE SULFATE 0.1 MG/ML 10ML SYR IV PRN (08:46)
[2022-04-14] MEDS ORDERED: fentaNYL citrate 100 MCG/2 ML VIAL IV PRN (08:46)
[2022-04-14] MEDS ORDERED: ePHEDrine sulfate 50 MG/ML AMP IV PRN (08:46)
[2022-04-14] MEDS ORDERED: PROMETHAZINE HCL 12.5 MG in SODIUM CHLORIDE 0.9% 50 ML IV PRN (08:46)
[2022-04-14] MEDS ORDERED: FLUMAZENIL 0.1 MG/1 ML 10 ML VIAL IV PRN (08:46)
[2022-04-14] MEDS ORDERED: NALOXONE HCL 0.4 MG/1 ML VIAL/CARP IV PRN (08:46)
[2022-04-14] MEDS ORDERED: LABETALOL HCL IV 5 MG/ML 20ML IV PRN (08:46)
[2022-04-14] MEDS ORDERED: ONDANSETRON INJ 2 MG/ML 2 ML VIAL IV PRN (08:46)
[2022-04-14] MEDS ORDERED: CYANOCOBALAMIN (B-12) 500 MCG TABLET PO SCH (09:00)
[2022-04-14] MEDS ORDERED: ONDANSETRON INJ 2 MG/ML 2 ML VIAL ONE (09:07)
[2022-04-14] MEDS ORDERED: DEXAMETHASONE SOD INJ 4 MG/ML VIAL ONE ×2 (09:08)
--- NOTE | 2022-04-14 09:14 | Procedure Note ---
Procedure Note Date of Service April 14, 2022 Note GI brief procedure note EGD findings: severe esophagitis noted with sloughing of mucosa and friable mucosa from the distal esophagus to the mid esophagus, spanning at least 10 cm. biopsied. mild erythema in antrum, biopsied. no evidence of bleeding ulcers or AVMs or masses. normal duodenum. recs: protonix 40 mg BID for at least 3 months repeat EGD in 3 months advance diet to regular today colonoscopy on monday 04/16 if patient is going to stay inpatient, otherwise can do as an outpatient. clear liquid diet starting on 04/15, NPO post midnight friday night. prep with golytely 4L starting at 6 pm on 04/15. Sebastian Long MD Gastroenterology Coding
--- NOTE | 2022-04-14 09:21 | GI REPORT ---
Patient Name: Mega Vyas Procedure Date: 04/14/2022 8:55 AM Date of : 1970 Admit Type: Inpatient Age: 52 Gender: Male Attending MD: Sebastian Long MD Procedure: Upper GI endoscopy Providers: Sebastian Long MD Referring MD: Marcos Lopez Indications: Iron deficiency anemia secondary to chronic blood loss Medicines: Monitored Anesthesia Care Complications: No immediate complications. Estimated blood loss: None. Estimated Blood Loss: Estimated blood loss: none. Procedure: Pre-Anesthesia Assessment: - Prior Anticoagulants: The patient has taken no previous anticoagulant or antiplatelet agents. - ASA Grade Assessment: II - A patient with mild systemic disease. After obtaining informed consent, the endoscope was passed under direct vision. Throughout the procedure, the patient's blood pressure, pulse, and oxygen saturations were monitored continuously. The Endoscope was introduced through the mouth, and advanced to the second part of duodenum. The upper GI endoscopy was accomplished without difficulty. The patient tolerated the procedure well. Findings: LA Grade D (one or more mucosal breaks involving at least 75% of esophageal circumference) esophagitis was found in the distal esophagus spanning up at least 10 cm to the mid esophagus, with sloughing of mucosa. Biopsies were taken with a cold forceps for histology. Estimated blood loss: none. Localized mildly erythematous mucosa without bleeding was found in the gastric antrum. Biopsies were taken with a cold forceps for Helicobacter pylori testing. Estimated blood loss: none. The duodenal bulb and second portion of the duodenum were normal. Impression: - LA Grade D chronic esophagitis. Biopsied. - Erythematous mucosa in the antrum. Biopsied. - Normal duodenal bulb and second portion of the duodenum. Recommendation: - Resume previous diet today. - Await pathology results. - Return patient to [facility] for ongoing care. Sebastian Long MD 04/14/2022 9:20:44 AM This report has been signed electronically. Note Initiated On: 04/14/2022 8:55 AM Number of Addenda: 0 I attest to the content of the Intraoperative Record and orders documented therein, exceptions below {[id number]}
--- NOTE | 2022-04-14 10:32 | Anesthesiology Progress Note ---
Date of Service April 14, 2022 Anesthesia Post Procedure Vital Signs Vital Signs: Temp Pulse Pulse Pulse Pulse Resp BP 04/14/22 10:00 36.1 C L 60 17 04/14/22 09:50 59 L 19 04/14/22 09:40 69 19 04/14/22 09:30 36.1 C L 64 17 04/14/22 08:00 60 04/14/22 07:40 36.6 C 60 18 04/14/22 03:50 36.4 C L 50 L 18 04/13/22 23:51 36.7 C 58 L 18 04/13/22 22:35 52 L 04/13/22 19:32 36.7 C 59 L 18 04/13/22 15:34 36.5 C 56 L 20 04/13/22 12:42 36.6 C 48 L 18 132/78 04/13/22 11:43 36.3 C L 49 L 16 127/75 04/13/22 11:42 36.6 C 52 L 16 04/13/22 11:13 36.8 C 48 L 18 123/72 04/13/22 10:58 36.8 C 53 L 16 130/84 04/13/22 10:43 36.6 C 52 L 16 132/75 04/13/22 10:34 36.7 C 52 L 16 132/75 BP BP Pulse Ox 04/14/22 10:00 131/79 96 04/14/22 09:50 124/70 94 04/14/22 09:40 143/75 H 96 04/14/22 09:30 138/77 97 04/14/22 08:00 04/14/22 07:40 137/84 95 04/14/22 03:50 166/97 H 95 04/13/22 23:51 149/76 H 97 04/13/22 22:35 04/13/22 19:32 133/65 96 04/13/22 15:34 127/68 96 04/13/22 12:42 99 04/13/22 11:43 97 04/13/22 11:42 132/75 04/13/22 11:13 95 04/13/22 10:58 97 04/13/22 10:43 98 04/13/22 10:34 99 Transfer of Care Handoff Completed per policy Notes Mental Status: alert / awake / arousable Patient Amnestic to Procedure: Yes Nausea / Vomiting: adequately controlled Pain: adequately controlled Airway Patency, RR, SpO2: stable & adequate BP & HR: stable & adequate Hydration State: stable & adequate Anesthetic Complications: no major complications apparent
--- NOTE | 2022-04-14 14:06 | Discharge Summary ---
Date of Service April 14, 2022 Admission HPI Per Admitting Provider Mr. Vyas is a 51-year-old male past medical history of obesity and GERD who presents today for hemoglobin of 7.3 on outpatient labs. He presented to his PCP today to be seen for ongoing SOB, fatigue and chest pain. He noticed in October 2021 when he had to cut wood he was very short of breath and fatigued, feeling wiped out with significantly less activity than is typically able to do. This has been ongoing with activity since then. Associated with intermittent bouts of chest pain, described as sharp, stabbing pain in his chest that does not radiate elsewhere, lasts up to 30 seconds and goes away without in tervention. Comes on both at rest, with activity, and after meals. Reports sometimes after swallowing, he feels pressure as if the food is pushing on his heart as it goes down. He denies fever/chills, weight loss, night sweats, decreased appetite, chest pressure, diaphoresis, dizziness, syncope, cough, orthopnea, PND, abdominal pain, nausea, vomiting, melena, hematochezia, hematemesis. Was evaluated by his PCP today who ordered labs for further evaluation. Labs and stress echo ordered, An EKG was done in the office that did not reveal any clear signs of ischemia. He reports having EGDs in the past at this facility years ago and been being told he has "a bleeding throat", did find a EGD report from 2009 that reported gastritis/esophagitis. He takes Nexium for heartburn. Reports a poor diet consists of fatty foods and fast food, denies alcohol use. Denies personal or family history of anemia, GI cancers. In ED, patient hypertensive 155/77, otherwise vital signs normal stable, 97% on room air. Labs significant for Hgb 7.3 with MCV 61.8, MCHC 26.8. Coag panel within normal limits. CMP unremarkable. Discharge Data Allergies Allergy/AdvReac Type Severity Reaction Status Date / Time codeine Allergy Severe Anaphylaxis Unverified 04/12/22 19:34 Consultations 04/12/22 20:27 ED Decision to Admit Stat 04/12/22 21:15 Consult Gastroenterology Routine Procedures Performed Operation Date: 04/14/22 09:00 Actual Procedures p Esophagogastroduodenoscopy - Sebastian Long MD Ordered Studies 04/12/22 19:43 CT abd pelvis oral and IV con Urgent Hospital Course (1) Symptomatic anemia: Hb 7.3 upon presentation. s/p 1 unit PRBCs overnight - Hb 7.8 this am. will Tx 1 additional unit PRBCs. venofer x 3 doses while hosptalized. CBC in am. appreciate Dr Long's consult - NPO after MN tonight for EGD in am. symptoms, Fe def, etc all concerning for significant upper GI pathology. (2) Iron deficiency anemia: severe ferritin 2 venofer 300mg IV daily x 3 daily doses check b12/folate in am for completeness sake (3) Shortness of breath: chronic likely due to #1 however, if symptoms persist after correcting his anemia would need cardiac (ischemic) w/u as outpatient (4) GERD (gastroesophageal reflux disease): cont IV PPI twice daily severe GERD symptoms on daily basis at home despite once daily PPI h/o esophagitis from such EGD tomorrow as planned by Dr Long (5) Morbid obesity with BMI of 40.0-44.9, adult: BMI 40 (6) Prediabetes: Hba1c 6% will genetic counsellor patient (7) History of esophagitis: 2010 and 2010 - EGDs by Dr Bee with SEVERE reflux esophagitis 2010 esophageal bx - no Gray's updated at bedside Discharge Plan Discharge Items Patient Disposition: Home - Self-Care Reason For Visit: Severe Anemia Discharge Diagnosis: 1. Severe Iron Deficiency Anemia 2. Severe esophagitis (inflammation/irritation of the esophagus) 3. Gastrointestinal blood loss likely due to #2 4. 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 Your anemia is due to SEVERE iron deficiency. Iron deficiency in most adults is due to blood loss from somewhere in the gastrointestinal tract. Your hemoglobin at admission was 7.3, improving to 8.8 on day of discharge. You received 2 units of blood and 2 iron infusions while here. The iron you received will help your body make more red cells and bring the hemoglobin level up closer to normal (normal is about [address] in men). Dr Long from [facility] performed an upper endoscopy today which showed severe esophagitis. See handouts. Your esophagitis is likely from SEVERE heartburn/GERD/reflux disease. I suspect that over the last few months you have been intermittently bleeding from the esophagus. Change in diet, lifestyle habits, and taking acid reducers will heal the esophagitis. Recommendations - 1. NO regular coffee/tea/soda for at least a week. After that limit regular coffee consumption to about a cup (8-10 ounces) each day. 2. AVOID spicy foods, fried foods, fast foods. 3. AVOID eating/drinking late in the evening. 4. AVOID excessive amounts of alcohol (beer, wine, liquor). Limit alcohol to about 1 serving each day at most. 5. Elevate the head of your bed to at least 45 degrees at night-time when you sleep. 6. Do not lay down for at least a couple of hours after you eat your meals. 7. Nexium medication - take 40mg twice daily. Prescription sent to [facility] for you. This is your acid ropeman. 8. Your vitamin B12 level was on the low end of normal. Take [id number] vitamin B12 1000mcg daily. Start this tomorrow. Take for at least 6 months but preferably 1 year. 9. Have a colonoscopy in the near-future. Dr Long can arrange this for you. 10. Dr Long plans to repeat your upper endoscopy in about 3 months. 11. Please speak to your family doctor about receiving 1 additional iron infusion over the next few weeks. This can be done as an outpatient. You do not need to take oral iron supplements. 12. If after your anemia is fully resolved you continue to have shortness of breath please obtain a stress test to ensure your heart is healthy. Follow-up - see separate section Return to [facility] if - * you have severe abdominal pains or chest pains * you see dark stool, black stools, or tarry stools * you have bright red blood in your stools * you have difficulty swallowing * any other concerns It was our pleasure to care for you at [facility]! Dr Lopez Pending Studies at Discharge: No Stand-Alone Forms: My [facility], Smoking Cessation Medications and DC Order Prescriptions: New cyanocobalamin (vitamin B-12) 1,000 mcg capsule 1,000 mcg PO DAILY Qty: 90 RF: 3 Changed esomeprazole magnesium 40 mg capsule,delayed release(DR/EC) 40 mg PO BID Qty: 60 RF: 2 Discharge Orders: Discharge Order (Routine); Ordered 04/14/22 Ordered By: Marcos Greco/Other Patient Handouts: Esophagitis, GERD Lifestyle Changes, Medicines for Acid Reflux, Tips to Control Acid Reflux, ED GERD (Adult) Admission Data Admit Date/Time: 04/12/22 19:57 Attending Provider: Marcos Lopez Admit Provider: Jim Schroeder Primary Care Provider: Aquiles Gorman Other Providers: Jim Schroeder ; Sebastian Long Coding Diagnoses Symptomatic anemia D64.9 Iron deficiency anemia D50.9 Shortness of breath R06.02 GERD (gastroesophageal reflux disease) K21.9 Morbid obesity with BMI of 40.0-44.9, adult E66.01; Z68.41 Prediabetes R73.03 History of esophagitis Z87.19
== END 2022-04-14 14:59 | disposition home or self-care (01) | DRG 811 ==
LOC: ED 16:16 → 2S 19:57 → SUATTDRO 19:57 → 2S 20:57 → 3W 04-14 11:08
DX: Z68.38 Body mass index [BMI] 38.0-38.9, adult; Z88.5 Allergy status to narcotic agent; D50.0 Iron deficiency anemia secondary to blood loss (chronic); E66.01 Morbid (severe) obesity due to excess calories; K21.01 Gastro-esophageal reflux disease with esophagitis, with bleeding; Z86.16 Personal history of COVID-19